=== PATIENT | female | born 1960 | race Hispanic/Latino ===

== ENCOUNTER 2017-09-23 13:09 | Emergency (ER) | payer SELFPAY ==
[~2017-09-23] VITALS: Ht 144.8 cm; Wt 59.0 kg
[~2017-09-23 13:09] MED LIST: ACETIC ACID2 % AU; ACYCLOVIR400 MG PO; ALLERGY10 M1 PO; AMOX/K CLAV500 MG PO; AMOXICILLIN/CL875 MG OR; AMOXICILLIN500 MG PO; ANUCORT-HC25 MG RE; ANUSOL HC25 MG RE; BACTRIM DS1 TAB PO; BENTYL10 MG PO; CIPRO500 MG PO; CIPROFLOXACN500 MG PO; CLONAZEPAM0.5 MG PO; COLACE100 MG PO; DEBROX6.5 % AU; DEPO-MEDROL80 MG/ML IM; DOXYCYCL HYC100 M3 PO; FIORICET PO; FLAGYL500 MG OR; FLEXERIL PO; FLEXERIL5 M1 PO; HYDROCHLORO25 MG/TAB PO; HYDROCHLOROT25 MG OR; K-DUR/KLOR-CON20 MEQ PO; KEFLEX500 MG PO; LEVOTHYROXIN100 MC1 PO; LEVOTHYROXIN50 MCG PO; LORTAB 7.57.5 MG PO; LORTAB5 PO; MECLIZINE25 MG PO; MEDDOSEPAK OR; MEDDOSEPAK PO; METRONIDAZOL500 MG PO; METRONIDAZOLE500 MG PO; NAPROSYN500 MG PO; NASACORT AQ55 MCG/AC; NIFEDIAC CC60 MG OR; OMEPRAZOLE20 MG PO; PAROXETINE20 MG PO; POT CHLORIDE; POT CHLORIDE10 ME5 PO; POT CHLORIDE8 ME1 PO; PREDNISONE10 MG PO; PREVACID30 M3 PO; PRILOSEC40 MG PO; PYRIDIUM200 MG PO; ROCEPHIN 1 GM1 GM IM; ROCEPHIN 2250 MG/VIA IM; TRAMADOL HCL50 MG PO; ULTRAM50 MG PO; VICOPROFEN OR; ZOFRAN ODT8 MG PO; [UNRECOGNIZED DRUG - REMARK]
[2017-09-23 14:29] LABS: HEMATOCRIT 41.1 % (37.0-47.0); HEMOGLOBIN 14.1 g/dl (12.0-16.0); IMMATURE GRANULOCYTES 0.5 % (0.0-1.0); MEAN CELL VOLUME 85.4 fL CALC (80.0-100.0); MEAN CORPUSCULAR HGB 29.3 pG CALC (26.0-32.0); MEAN CORPUSCULAR HGB CONC 34.3 g/L CALC (32.0-36.0); NEUT# 5.41 thou/uL (2.00-7.15); RED BLOOD COUNT 4.81 mill/uL (4.20-5.60); RED CELL DISTRI WIDTH 13.2 % (11.5-15.5)
[2017-09-23] MEDS ORDERED: ULTRAM50 M1 PO (14:59)
[2017-09-23 15:17] VITALS: BP 163/79
== END 2017-09-23 15:17 | disposition home or self-care (01) | DRG 313 ==
LOC: ED 13:09
PROVIDERS: Emergency Medicine
DX: R07.9 Chest pain, unspecified (principal); I10 Essential (primary) hypertension; R07.89 Other chest pain; Y93.E5 Activity, floor mopping and cleaning; Y92.009 Unspecified place in unspecified non-institutional (private) residence as the place of occurrence of the external cause

== ENCOUNTER 2018-08-31 11:25 | Emergency (ER) | payer SELFPAY ==
[~2018-08-31] VITALS: Ht 144.8 cm; Wt 58.2 kg
[~2018-08-31 11:25] MED LIST changes: +ULTRAM50 M1 PO
[2018-08-31 12:38] LABS: HEMATOCRIT 43.4 % (37.0-47.0); HEMOGLOBIN 14.7 g/dl (12.0-16.0); IMMATURE GRANULOCYTES 0.4 % (0.0-5.0); MEAN CELL VOLUME 86.8 fL CALC (80.0-100.0); MEAN CORPUSCULAR HGB 29.4 pG CALC (26.0-32.0); MEAN CORPUSCULAR HGB CONC 33.9 g/L CALC (32.0-36.0); NEUT# 5.82 thou/uL (2.00-7.15)
[2018-08-31 12:44] LABS: ALBUMIN 4.3 g/dL (3.2-5.0); ALKALINE PHOSPHATASE 85 u/l (38-126); ANION GAP 15 (6-22 (CALC)); BILIRUBIN, TOTAL 0.6 mg/dL (0.0-1.4); BUN 22 mg/dL (7-17); BUN/CREATININE RATIO 43 (12-20 (CALC)); CARBON DIOXIDE 28 mmol/l (22-30); CHLORIDE 100 mmol/l (95-108); CREATININE 0.5 mg/dL (0.5-1.0); GFR > 60 ML/MIN (>=60 (CALC)); GFR FOR AFR.AMER. > 60 ML/MIN (>=60 (CALC)); SGOT/AST 32 u/l (14-36); SODIUM 140 mmol/l (137-146); TOTAL PROTEIN 8.1 g/dL (6.3-8.2)
[2018-08-31 12:56] LABS: MYOGLOBIN 28 ng/mL (0 - 62)
[2018-08-31 16:27] VITALS: BP 164/93
== END 2018-08-31 16:45 | disposition home or self-care (01) | DRG 305 ==
LOC: ED 11:25
PROVIDERS: Emergency Medicine
DX: I10 Essential (primary) hypertension (principal)

== ENCOUNTER 2018-09-02 15:05 | Observation (INO) | payer SELFPAY ==
[~2018-09-02] VITALS: Ht 144.8 cm; Wt 56.4 kg
--- NOTE | 2018-09-02 15:10 | NUR ---
PATIENT BACK TO ROOM FOR EXAM.
[2018-09-02] MEDS ORDERED: MOBIC7.5 M1 PO (15:28)
[2018-09-02] MEDS ORDERED: ASPIRIN81 MG PO (15:28)
[2018-09-02 15:36] LABS: HEMATOCRIT 44.2 % (37.0-47.0); HEMOGLOBIN 15.5 g/dl (12.0-16.0); IMMATURE GRANULOCYTES 0.1 % (0.0-5.0); MEAN CELL VOLUME 84.2 fL CALC (80.0-100.0); MEAN CORPUSCULAR HGB 29.5 pG CALC (26.0-32.0); MEAN CORPUSCULAR HGB CONC 35.1 g/L CALC (32.0-36.0); NEUT# 3.89 thou/uL (2.00-7.15); RED BLOOD COUNT 5.25 mill/uL (4.20-5.60); RED CELL DISTRI WIDTH 12.6 % (11.5-15.5)
--- NOTE | 2018-09-02 15:42 | NUR ---
PT RESTING QUIETLY ON STRETCHER, CALL LIGHT WITHIN REACH.
[2018-09-02 15:49] LABS: ANION GAP 16 (6-22 (CALC)); BUN 17 mg/dL (7-17); BUN/CREATININE RATIO 32 (12-20 (CALC)); CARBON DIOXIDE 28 mmol/l (22-30); CHLORIDE 99 mmol/l (95-108); CREATININE 0.5 mg/dL (0.5-1.0); GFR > 60 ML/MIN (>=60 (CALC)); GFR FOR AFR.AMER. > 60 ML/MIN (>=60 (CALC)); SODIUM 139 mmol/l (137-146)
--- NOTE | 2018-09-02 16:33 | NUR ---
NO CHEST PAIN SINCE ARRIVAL, PT SITTING UP IN BED TALKING AND LAUGHING WITH FAMILY
--- NOTE | 2018-09-02 17:08 | NUR ---
PT CAME FROM ER VIA WHEELCHAIR BY ESTRELLA OTTO AND FAMILY AT SIDE. PT AMBULATED TO BED. 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 CALL LIGHT IN REACH.
[2018-09-02 17:10] VITALS: BP 152/71
--- NOTE | 2018-09-02 17:11 | NUR ---
PT REPORT GIVEN TO MED SURG FOR CONTINUATION OF CARE, PT TAKEN TO 261 PER W/C WITH TELEMENTRY
--- NOTE | 2018-09-02 17:50 | NUR ---
ASSESSMENT DONE TELE IN PLACE. READING PER ED IS SR. PT IS A&O X3. RESPS EVEN AND UNLABORED. PT DENIES PAIN AT THIS TIME. # 20 RAC THAT APPEARS HEALTHY. PT DENIES NEEDS AT THIS TIME. PO FLUIDS PROVIDED. SAFETY PRECAUTIONS REINFORCED AND CALL LIGHT IN REACH. FAMILY IN ROOM.
[2018-09-02 20:00] VITALS: BP 124/70
--- NOTE | 2018-09-02 23:27 | NUR ---
PATIENT RESTING IN BED AWAKE ALERT AND ORIENTEDX3. NO COMPLAINTS AT THIS TIME. TELE MONITOR IN PLACE. SALINE LOCK TO RIGHT AC INTACT AND APPEARS HEALTHY AT THIS TIME. SAFETY PRECAUTIONS REINFORCED. CALL LIGHT IN REACH. WILL CONT TO MONITOR.
[2018-09-03 00:41] VITALS: BP 108/63
--- NOTE | 2018-09-03 01:08 | NUR ---
APPEARS SLEEPING AT THIS TIME IN NO ACUTE DISTRESS. TROP-NEG. TELE MONITOR IN PLACE. CALL LIGHT IN REACH. WILL CONT TO MONITOR.
[2018-09-03 03:55] VITALS: BP 113/63
--- NOTE | 2018-09-03 04:45 | NUR ---
APPEARS SLEEPING AT THIS TIME WITH EYES CLOSED. RESP ARE EVEN AND UNLABORED. TELE MONITOR IN PLACE. CALL LIGHT IN REACH. WILL CONT TO MONITOR.
[2018-09-03 06:30] LABS: BUN 18 mg/dL (7-17); BUN/CREATININE RATIO 32 (12-20 (CALC)); CALCULATED LDLCHOLESTEROL 137 mg/dL (62-129 (CALC)); CARBON DIOXIDE 29 mmol/l (22-30); CHLORIDE 104 mmol/l (95-108); CHOLESTEROL HDL RATIO 3.8 (<4.4 (CALC)); CREATININE 0.6 mg/dL (0.5-1.0); GFR > 60 ML/MIN (>=60 (CALC)); GFR FOR AFR.AMER. > 60 ML/MIN (>=60 (CALC)); HDL CHOLESTEROL 56 mg/dL (>=40); SODIUM 142 mmol/l (137-146); TOTAL CHOLESTEROL 210 mg/dl (0-199); TOTAL TRIGLYCERIDES 90 mg/dl (30-149); VLDL CHOLESTROL 18 mg/dl (2-49 (CALC))
[2018-09-03 06:31] LABS: ANION GAP 13 (6-22 (CALC)); POTASSIUM 3.8 mmol/l (3.5-5.1)
--- NOTE | 2018-09-03 07:00 | NUR ---
BEDSIDE REPORT RECEIVED BY LINDA. PT IS RESTING IN BED WITH NO S/S OF DISTRESS NOTED. PT DENIES NEEDS AT THIS TIME. CALL LIGHT IN REACH.
--- NOTE | 2018-09-03 08:06 | NUR ---
ASSESSMENT DONE. TELE IN PLACES RESPS EVEN AND UNLABORED. PT DENIES PAIN AT THIS TIME. PT STATED SHE IS READY TO GO HOME. EXPLAIN SHE MUST WAIT FOR MD POC. PT VERBALIZED UNDERSTANDING. #20 RAC THAT APPEARS HEALTHY. PT DENIES ANY OTHER NEEDS AT THIS TIME. SAFETY PRECAUTIONS REINFORCED AND CALL LIGHT IN REACH.
[2018-09-03 08:59] VITALS: BP 119/55
[2018-09-03 11:30] VITALS: BP 140/65
--- NOTE | 2018-09-03 12:00 | NUR ---
PT IS EATING HER LUNCH WITH NO S/S OF DISTRESS NOTED. PT DENIES NEEDS AT THIS TIME. CALL LIGHT IN REACH.
--- NOTE | 2018-09-03 15:10 | NUR ---
Discharge instructions given. Patient verbalizes understanding of same. Discharged in stable condition via Wheelchair to Home with family. All belongings sent with pt.
== END 2018-09-03 15:15 | disposition home or self-care (01) | DRG 313 ==
LOC: ED 15:05 → ED-I 16:23 → ED 16:36 → MS2 16:36
PROVIDERS: Family Medicine; Nurse Practitioner Family; ADMIT Internal Medicine; ATTEND Internal Medicine
DX: R07.9 Chest pain, unspecified (principal); I10 Essential (primary) hypertension; F41.1 Generalized anxiety disorder; E07.9 Disorder of thyroid, unspecified; K21.9 Gastro-esophageal reflux disease without esophagitis; E03.9 Hypothyroidism, unspecified; E87.6 Hypokalemia; E66.9 Obesity, unspecified; Z73.3 Stress, not elsewhere classified
CPT/HCPCS: G0378

== ENCOUNTER 2019-03-30 09:59 | Emergency (ER) | payer SELFPAY ==
[~2019-03-30] VITALS: Ht 144.8 cm; Wt 60.5 kg
[~2019-03-30 09:59] MED LIST changes: +ASPIRIN81 MG PO; +MOBIC7.5 M1 PO
[2019-03-30] MEDS ORDERED: LISINOPRIL10 MG PO (10:19)
[2019-03-30] MEDS ORDERED: LEVOTHYROXIN50 MCG PO (10:19)
[2019-03-30] MEDS ORDERED: CIPROFLOXACN500 MG PO (10:20)
[2019-03-30] MEDS ORDERED: MOTRIN800 MG PO (10:21)
[2019-03-30] MEDS ORDERED: CYCLOBENZAPR5 MG PO (10:22)
[2019-03-30 10:40] VITALS: BP 178/76
== END 2019-03-30 10:40 | disposition home or self-care (01) | DRG 552 ==
LOC: ED 09:59
DX: M54.42 Lumbago with sciatica, left side (principal)

== ENCOUNTER 2019-04-20 20:39 | Emergency (ER) | payer SELFPAY ==
[~2019-04-20] VITALS: Ht 144.8 cm; Wt 58.0 kg
[~2019-04-20 20:39] MED LIST changes: +CYCLOBENZAPR5 MG PO; +LISINOPRIL10 MG PO; +MOTRIN800 MG PO
[2019-04-20] MEDS ORDERED: HYDROCHLOROT25 MG PO (21:13)
[2019-04-20 21:47] LABS: URINE BILIRUBIN - DIPSTICK NEGATIVE (NEGATIVE); URINE BLOOD DIPSTICK TRACE-INTACT (NEGATIVE); URINE CLARITY CLEAR; URINE COLOR YELLOW; URINE GLUCOSE - DIPSTICK NEGATIVE (NEGATIVE); URINE KETONE NEGATIVE (NEGATIVE); URINE LEUK ESTERASE NEGATIVE (Negative); URINE NITRITE - DIPSTICK NEGATIVE (Negative); URINE PROTEIN - DIPSTICK NEGATIVE (NEG-TRACE); URINE UROBILINOGEN - DIPSTICK 0.2 E.U./dL (0.2)
[2019-04-20] MEDS ORDERED: ORPHENADRINE100 MG PO (23:55)
[2019-04-20] MEDS ORDERED: IBUPROFEN600 MG PO (23:55)
[2019-04-21] VITALS: BP 138/75
== END 2019-04-21 | disposition home or self-care (01) | DRG 552 ==
LOC: ED 20:39
PROVIDERS: Emergency Medicine
DX: M54.5 Low back pain (principal); M47.817 Spondylosis without myelopathy or radiculopathy, lumbosacral region; M43.8X6 Other specified deforming dorsopathies, lumbar region

== ENCOUNTER 2019-12-18 18:11 | Emergency (ER) | payer SELFPAY ==
[~2019-12-18 18:11] MED LIST changes: +HYDROCHLOROT25 MG PO; +IBUPROFEN600 MG PO; +ORPHENADRINE100 MG PO
[2019-12-18 20:05] VITALS: BP 130/63
== END 2019-12-18 20:05 | disposition home or self-care (01) | DRG 395 ==
LOC: ED 18:11
DX: T18.128A Food in esophagus causing other injury, initial encounter (principal); I10 Essential (primary) hypertension; X58.XXXA Exposure to other specified factors, initial encounter

== ENCOUNTER 2021-05-25 11:33 | Emergency (ER) | payer SELFPAY ==
[~2021-05-25] VITALS: Ht 144.8 cm; Wt 62.0 kg
[2021-05-25] MEDS ORDERED: MUPIROCIN2 % EX ×2 (13:13→13:14)
[2021-05-25] MEDS ORDERED: TORADOL PO (13:14)
[2021-05-25 13:25] VITALS: BP 145/83
== END 2021-05-25 13:38 | disposition home or self-care (01) | DRG 156 ==
LOC: ED 11:33
DX: J34.0 Abscess, furuncle and carbuncle of nose (principal); I10 Essential (primary) hypertension

== ENCOUNTER 2021-06-29 11:02 | Emergency (ER) | payer OTHER ==
[~2021-06-29] VITALS: Ht 144.8 cm; Wt 64.5 kg
[~2021-06-29 11:02] MED LIST changes: +MUPIROCIN2 % EX; +TORADOL PO
[2021-06-29] MEDS ORDERED: ZPAK PO (13:54)
[2021-06-29 14:00] VITALS: BP 141/70
== END 2021-06-29 14:00 | disposition home or self-care (01) | DRG 179 ==
LOC: ED 11:02
DX: U07.1 COVID-19 (principal); I10 Essential (primary) hypertension

== ENCOUNTER 2021-07-21 12:24 | Emergency (ER) | payer SELFPAY ==
[~2021-07-21] VITALS: Ht 144.8 cm; Wt 77.0 kg
[~2021-07-21 12:24] MED LIST changes: +ZPAK PO
[2021-07-21 12:49] VITALS: BP 121/76
[2021-07-21 14:46] LABS: HEMATOCRIT 41.5 % (37.0-47.0); HEMOGLOBIN 13.9 g/dl (12.0-16.0); IMMATURE GRANULOCYTES 0.1 % (0.0-5.0); MEAN CELL VOLUME 85.6 fL CALC (80.0-100.0); MEAN CORPUSCULAR HGB 28.7 pG CALC (26.0-32.0); MEAN CORPUSCULAR HGB CONC 33.5 g/dL CAL (32.0-36.0); NEUT# 5.49 thou/uL (2.00-7.15); RED BLOOD COUNT 4.85 mill/uL (4.20-5.60); RED CELL DISTRI WIDTH 12.8 % (11.5-15.5)
[2021-07-21 14:58] LABS: ALBUMIN 4.4 g/dL (3.2-5.0); ALKALINE PHOSPHATASE 89 u/l (38-126); BILIRUBIN, TOTAL 0.6 mg/dL (0.0-1.4); BUN 15 mg/dL (8-23); BUN/CREATININE RATIO 20 (12-20 (CALC)); CARBON DIOXIDE 28 mmol/l (22-30); CREATININE 0.7 mg/dL (0.5-1.0); GFR > 60 ML/MIN (>=60 (CALC)); GFR FOR AFR.AMER. > 60 ML/MIN (>=60 (CALC)); POTASSIUM 3.4 mmol/l (3.5-5.1); SGOT/AST 35 u/l (9-36); TOTAL PROTEIN 8.6 g/dL (6.3-8.2)
[2021-07-21 15:06] LABS: ANION GAP 12 (6-22 (CALC)); CHLORIDE 91 mmol/l (95-108); SODIUM 128 mmol/l (137-146)
[2021-07-21 15:09] LABS: MYOGLOBIN 27 ng/mL (0 - 62)
[2021-07-21] MEDS ORDERED: ZPAK PO (16:11)
[2021-07-21] MEDS ORDERED: MEDDOSEPAK PO (16:11)
== END 2021-07-21 17:04 | disposition home or self-care (01) | DRG 918 ==
LOC: ED 12:24
PROVIDERS: Emergency Medicine
DX: T54.91XA Toxic effect of unspecified corrosive substance, accidental (unintentional), initial encounter (principal); R06.02 Shortness of breath; I10 Essential (primary) hypertension; Z20.822 Contact with and (suspected) exposure to COVID-19

== ENCOUNTER 2024-11-11 08:10 | Emergency (ER) | payer BC ==
[~2024-11-11] VITALS: Ht 144.8 cm; Wt 81.6 kg
[2024-11-11 08:21] VITALS: BP 153/70
[2024-11-11 08:40] VITALS: BP 153/70
== END 2024-11-11 08:41 | disposition home or self-care (01) | DRG 761 ==
LOC: ED 08:10
DX: T19.2XXA Foreign body in vulva and vagina, initial encounter (principal); W44.8XXA Other foreign body entering into or through a natural orifice, initial encounter